=== PATIENT | female | born 1975 | race Caucasian/White ===

== ENCOUNTER 2018-12-24 15:17 | Inpatient (IN) | payer OTHER ==
[~2018-12-24] VITALS: Ht 167.6 cm; Wt 99.8 kg
[2018-12-24] MEDS ORDERED: MORPHINE SULFATE 4 MG/ML CPJ (NOT FOR IM USE) IV STA (15:42)
[2018-12-24] MEDS ORDERED: ONDANSETRON HCL 4MG/2ML INJ IV STA (15:42)
[2018-12-24] MEDS ORDERED: NITROGLYCERIN OINT 1GM/INCH UDPKT TD ONE (15:45)
[2018-12-24 16:03] LABS: CHLORIDE 100 mEq/L (98-107)
[2018-12-24 16:05] LABS: BASOPHILS % 0.6 % (0.0-2.0); EOSINOPHILS % 2.1 % (0.0-5.0); HEMATOCRIT. 38.7 % (36.0-48.0); LYMPHOCYTES % 20.2 % (20.0-50.0); MEAN CORPUSCULAR HEMOGLOBIN 30.8 pg (28.0-32.0); MEAN CORPUSCULAR VOLUME 91.4 fL (81.0-99.0); MEAN PLATELET VOLUME 9.4 fl (7.4-10.4); MONOCYTES % 6.9 % (2.0-8.0); NEUTROPHILS % 70.2 % (40.0-76.0); PARTIAL THROMBOPLASTIN TIME 26.1 sec (23.4-31.0); PLATELET 218 x1000/uL (130-400); PROTHROMBIN TIME 10.1 sec (9.1-11.1); RED BLOOD CELL COUNT 4.24 mill/uL (4.2-5.4)
[2018-12-24 16:09] LABS: PHOSPHORUS 2.6 mg/dL (2.5-4.9)
[2018-12-24] MEDS ORDERED: ENALAPRIL 2.5MG/2ML VIAL 2ML IV ONE (16:15)
[2018-12-24 16:23] LABS: HCG SCREEN NEGATIVE
[2018-12-24] MEDS ORDERED: DIPHENHYDRAMINE 50MG/ML VIAL IV PRN (21:45)
[2018-12-24] MEDS ORDERED: ONDANSETRON HCL 4MG/2ML INJ IV PRN (21:45)
[2018-12-24] MEDS ORDERED: HYDROMORPHONE HCL/PF 2MG/ML CPJ IV PRN (21:45)
[2018-12-24] MEDS ORDERED: MAGNESIUM/ALUMINUM HYDROXIDE/SIMETHICONE 30ML UDC PO PRN (21:45)
[2018-12-24] MEDS ORDERED: CLONIDINE 0.1MG TABLET PO PRN (21:45)
[2018-12-24] MEDS ORDERED: LORAZEPAM 2MG/ML CPJ IV PRN (21:45)
[2018-12-24] MEDS ORDERED: IPRATROPIUM/ALBUTEROL 0.5-3(2.5)MG/3ML NEB INH PRN (21:45)
[2018-12-24] MEDS ORDERED: ACETAMINOPHEN 325MG TABLET PO PRN (21:45)
[2018-12-24] MEDS ORDERED: DOCUSATE SODIUM 100MG CAPSULE PO PRN (21:45)
[2018-12-24] MEDS ORDERED: HYDROCODONE/ACETAMINOPHEN 10/325MG TABLET PO PRN (21:45)
[2018-12-24] MEDS ORDERED: GUAIFENESIN 200MG/10ML SUGAR FREE UDC PO PRN (21:45)
[2018-12-24] MEDS: SODIUM CHLORIDE 0.9% INJ 3ML FLUSH IVF SCH (22:00)
[2018-12-24 23:04] LABS: CREATINE KINASE 48 IU/L (26-192)
[2018-12-24 23:05] LABS: CREATINE KINASE MB FRACTION 3.7 ng/mL (0.5-3.6)
[2018-12-24] MEDS ORDERED: HYDRALAZINE 20MG/ML VIAL IV PRN (23:45)
[2018-12-25] MEDS ORDERED: HYDRALAZINE 20MG/ML VIAL IV PRN (02:00)
[2018-12-25 06:17] LABS: BASOPHILS % 0.5 % (0.0-2.0); EOSINOPHILS % 0.8 % (0.0-5.0); HEMATOCRIT. 37.5 % (36.0-48.0); HEMOGLOBIN. 12.5 g/dL (12.0-16.0); LYMPHOCYTES % 14.3 % (20.0-50.0); MEAN CORPUSCULAR HEMOGLOBIN 30.6 pg (28.0-32.0); MEAN PLATELET VOLUME 9.3 fl (7.4-10.4); NEUTROPHILS % 79.4 % (40.0-76.0); PLATELET 196 x1000/uL (130-400); RED BLOOD CELL COUNT 4.07 mill/uL (4.2-5.4); RED CELL DISTRIBUTION WIDTH 14.7 % (11.6-14.6)
[2018-12-25 06:19] LABS: CHLORIDE 98 mEq/L (98-107)
[2018-12-25 06:27] LABS: CREATINE KINASE 50 IU/L (26-192)
[2018-12-25 06:30] LABS: CREATINE KINASE MB FRACTION 3.3 ng/mL (0.5-3.6)
[2018-12-25] MEDS: SODIUM CHLORIDE 0.9% INJ 3ML FLUSH IVF SCH ×3 (07:32→21:18)
[2018-12-25 09:30] VITALS: BP 153/80
[2018-12-25] MEDS ORDERED: INSLIS SUBCUT (11:46)
[2018-12-25] MEDS ORDERED: LISI10TA5 MT (11:46)
[2018-12-25] MEDS ORDERED: INSU100I28 SQ (11:46)
[2018-12-25 12:00] VITALS: BP 169/89
[2018-12-25] MEDS ORDERED: INSULIN LISPRO 100 UNITS/ML SUBCUT SCH (12:40)
[2018-12-25] MEDS ORDERED: DEXTROSE 50% WATER 50ML SYRINGE IV PRN (12:45)
[2018-12-25] MEDS ORDERED: INSULIN GLARGINE UD 100 UNITS/ML SYR SUBCUT ONE (13:30)
[2018-12-25] MEDS: LISINOPRIL 10MG TABLET PO SCH ×2 (13:31→21:18)
[2018-12-25] MEDS: ENOXAPARIN 40MG/0.4ML SYR SUBCUT SCH (13:32)
[2018-12-25] MEDS: INSULIN LISPRO 100 UNITS/ML SUBCUT SCH ×3 (13:39→21:17)
[2018-12-25 16:00] VITALS: BP 128/69
[2018-12-25] MEDS: BLOOD SUGAR DIAGNOSTIC STRIP TEST SCH ×2 (17:10→21:13)
[2018-12-25 20:28] VITALS: BP 140/76
[2018-12-26] VITALS: BP 142/75
[2018-12-26] MEDS ORDERED: REGADENOSON 0.4 MG/5 ML IV ONE ×2 (00:30→08:47)
[2018-12-26 04:00] VITALS: BP 139/91
[2018-12-26] MEDS: BLOOD SUGAR DIAGNOSTIC STRIP TEST SCH ×2 (06:33→11:47)
[2018-12-26] MEDS: INSULIN LISPRO 100 UNITS/ML SUBCUT SCH ×2 (06:43→13:16)
[2018-12-26] MEDS: SODIUM CHLORIDE 0.9% INJ 3ML FLUSH IVF SCH ×2 (07:10→13:11)
[2018-12-26 07:44] LABS: BASOPHILS % 0.7 % (0.0-2.0); EOSINOPHILS % 2.9 % (0.0-5.0); HEMATOCRIT. 38.9 % (36.0-48.0); HEMOGLOBIN. 12.6 g/dL (12.0-16.0); LYMPHOCYTES % 23.8 % (20.0-50.0); MEAN CORPUSCULAR HEMOGLOBIN 30.3 pg (28.0-32.0); MEAN CORPUSCULAR VOLUME 93.6 fL (81.0-99.0); MEAN PLATELET VOLUME 9.6 fl (7.4-10.4); MONOCYTES % 5.6 % (2.0-8.0); PLATELET 214 x1000/uL (130-400); RED BLOOD CELL COUNT 4.16 mill/uL (4.2-5.4); RED CELL DISTRIBUTION WIDTH 14.2 % (11.6-14.6)
[2018-12-26 08:00] VITALS: BP 186/76
[2018-12-26] MEDS: ENOXAPARIN 40MG/0.4ML SYR SUBCUT SCH (09:51)
[2018-12-26] MEDS: LISINOPRIL 10MG TABLET PO SCH (09:51)
[2018-12-26] MEDS ORDERED: INSULIN GLARGINE UD 100 UNITS/ML SYR SUBCUT SCH (10:00)
[2018-12-26 10:40] VITALS: BP 133/62
[2018-12-26] MEDS ORDERED: ATOR10TA69 MT (10:46)
[2018-12-26 12:00] VITALS: BP 133/63
== END 2018-12-26 17:25 | disposition home or self-care (01) | DRG 199 ==
LOC: ER 15:38 → 8WST 16:48 → EDBEDREQ 16:51 → EDBEDREQTM 16:51 → EDBEDREQ 18:10 → EDBEDREQTM 18:10 → ENRESERV 12-25 07:09
PROVIDERS: ADMIT Internal Medicine; ATTEND Internal Medicine
PROC: 5A1D70Z Performance of Urinary Filtration, Intermittent, Less than 6 Hours Per Day (ICD-10-PCS; principal; 2018-12-26)
DX: I16.0 Hypertensive urgency (principal); E11.22 Type 2 diabetes mellitus with diabetic chronic kidney disease; N18.6 End stage renal disease; E46 Unspecified protein-calorie malnutrition; I12.0 Hypertensive chronic kidney disease with stage 5 chronic kidney disease or end stage renal disease; R79.89 Other specified abnormal findings of blood chemistry; R07.89 Other chest pain; E78.5 Hyperlipidemia, unspecified; Z99.2 Dependence on renal dialysis; Z68.35 Body mass index [BMI] 35.0-35.9, adult
CPT/HCPCS: 36415; 71045; 78452; 80048; 82550; 82553; 82962; 83735; 83880; 84100; 84484; 84703; 93005; 93017; 96374; 96375; 96376; 99291; A9500; J1650; J1815; J2270; J2405; J2785; J3490

== ENCOUNTER 2019-11-13 16:24 | Emergency (ER) | payer MEDICARE, MEDICAID ==
[~2019-11-13] VITALS: Ht 167.6 cm; Wt 120.0 kg
[~2019-11-13 16:24] MED LIST: ATOR10TA69 MT; INSLIS SUBCUT; INSU100I28 SQ; LISI10TA5 MT
[2019-11-13] MEDS ORDERED: CLONIDINE 0.2MG TABLET PO ONE (17:30)
[2019-11-13 17:43] LABS: EOSINOPHILS % 2.1 % (0.0-5.0); HEMATOCRIT. 33.1 % (36.0-48.0); HEMOGLOBIN. 11.4 g/dL (12.0-16.0); LYMPHOCYTES % 18.7 % (20.0-50.0); MEAN CORPUSCULAR HEMOGLOBIN 33.6 pg (28.0-32.0); MEAN CORPUSCULAR VOLUME 97.4 fL (81.0-99.0); MEAN PLATELET VOLUME 10.4 fl (7.4-10.4); MONOCYTES % 4.7 % (2.0-8.0); NEUTROPHILS % 73.5 % (40.0-76.0); PLATELET 271 x1000/uL (130-400); RED CELL DISTRIBUTION WIDTH 13.4 % (11.6-14.6)
[2019-11-13 17:49] LABS: CHLORIDE 102 mEq/L (98-107)
[2019-11-13 17:57] LABS: PARTIAL THROMBOPLASTIN TIME 25.9 sec (23.4-31.0); PROTHROMBIN TIME 10.5 sec (9.6-11.0)
[2019-11-13] MEDS ORDERED: HYDRALAZINE 20MG/ML VIAL IV ONE (18:45)
[2019-11-14 00:41] VITALS: BP 141/67
== END 2019-11-14 01:39 | disposition short-term general hospital (02) ==
LOC: ER 16:24 → CANBEDREQ 11-14 03:30
DX: R53.1 Weakness (principal); I10 Essential (primary) hypertension; R06.02 Shortness of breath; R41.82 Altered mental status, unspecified; I12.0 Hypertensive chronic kidney disease with stage 5 chronic kidney disease or end stage renal disease; N18.6 End stage renal disease; Z99.2 Dependence on renal dialysis; E78.00 Pure hypercholesterolemia, unspecified; Z98.890 Other specified postprocedural states; Z79.899 Other long term (current) drug therapy; Z79.4 Long term (current) use of insulin
CPT/HCPCS: 36415; 70450; 71045; 80053; 83880; 84484; 85025; 85610; 85730; 87040; 93005; 96374; 99285; J0360